=== PATIENT | male | born 1990 ===

== ENCOUNTER 2017-10-14 07:13 | Emergency (ER) | payer BC ==
[2017-10-14 07:31] VITALS: BP 136/84
--- NOTE | 2017-10-23 13:41 | UC ---
Heri Anton Gabriel, scribed for Oanh Shabazz DO on 10/14/17 at 0805 . Laceration HPI - HPI Summary HPI Summary: This patient is a 27 year old M [place] [facility] [place] mother with a chief complaint of an upper lip laceration that occurred at 06:15 this morning. Pt was playing hockey and when another players helmet struck his upper lip splitting it. The patient rates the pain 4/10 in severity. Patient denies fever, chills, CP, ABD pain, FERRARI, dizziness, LOC, vision changes, fatigue, and emotional changes. - History Of Current Complaint Chief Complaint: UCLaceration Stated Complaint: LIP LAC Time Seen by Provider: 10/14/17 07:30 Hx Obtained From: Patient Laceration Location: Face - lip Mechanism Of Injury: Blunt Trauma Onset/Duration: Sudden Onset, Still Present Severity: Mild Pain Intensity: 4 Pain Scale Used: 0-10 Numeric - Allergies/Home Medications Allergies/Adverse Reactions: Allergies Allergy/AdvReac Type Severity Reaction Status Date / Time No Known Allergies Allergy Verified 10/14/17 07:25 PMH/Surg Hx/FS Hx/Imm Hx Previously Healthy: Yes Other History Of: Negative For: Anticoagulant Therapy - Surgical History Surgical History: None Surgery Procedure, Year, and Place: L knee - ACL repair 2011 - Family History Known Family History: Negative: Cardiac Disease, Hypertension, Diabetes, Renal Disease, Respiratory Disease, Seizure Disorder, Blood Disorder - Social History Lives: With Family Alcohol Use: None Substance Use Type: None Smoking Status (MU): Never Smoked Tobacco Review of Systems Constitutional: Negative - fever Skin: Other - lip lac All Other Systems Reviewed And Are Negative: Yes Physical Exam - Summary Physical Exam Summary: Appearance: Well-Appearing, No Pain Distress, Well-Nourished Eyes: conjunctiva clear, no discharge ENT: Hearing grossly normal, no muffled/hoarse voice. TMs normal, negative tonsillar swelling, negative tonsillar exudate, negative trismus. Neck: Normal, Supple Respiratory/Lung Sounds: Lungs clear, Normal breath sounds, No respiratory distress, No accessory muscle use Cardiovascular: RRR, No murmur Musculoskeletal: Normal Neurological: Alert, muscle tone normal Psychiatric:Normal, age appropriate behavior Skin: Normal, Warm, Dry, Normal color, cm laceration on the upper right lip that crosses the david border Triage Information Reviewed: Yes Vital Signs: Initial Vital Signs Temp 98.7 F 10/14/17 07:25 Pulse 62 10/14/17 07:25 Resp 18 10/14/17 07:25 BP 136/84 10/14/17 07:25 Pulse Ox 98 10/14/17 07:25 Vital Signs Reviewed: Yes Re-Evaluation - Re-Evaluation First Eval Re-Evaluation Time: 08:08 Change: Unchanged Comment: Pt states he would like to have a plastic surgeon sew his lip. His mother is attempting to contact one currently, if she cannot be seen I will perform the repair. Second Eval Re-Evaluation Time: 08:15 Change: Unchanged - The patient was able to get an appointment with the plastic surgeon and will be getting the repair done there. Laceration Course/Dx - Course/Dx Course Of Treatment: Hypertension noted likely due to patients current condition. Patient will be discharged and will report directly to Dr. Jensen s office to have his lip repaired. The patient is agreeable with this plan. Medications reviewed. - Differential Dx - Laceration/Wound Provider Diagnoses: facial laceration Discharge - Sign-Out/Discharge Documenting (check all that apply): Discharge - Discharge Plan Condition: Stable Disposition: HOME Patient Education Materials: Facial Laceration (ED) Referrals: No Primary Care Phys,NOPCP [Primary Care Provider] - Additional Instructions: YOU REQUESTED TO HAVE YOUR LACERATION CLOSED BY DR JENSEN. FORTUNATELY, HE WAS ABLE TO GET YOU IN. PLEASE GO THERE FOR CLOSE KRYSTEN. The documentation as recorded by the Heri verma Gabriel accurately reflects the service I personally performed and the decisions made by me, Oanh Shabazz DO.
== END 2017-10-14 08:20 | disposition home or self-care (01) ==
LOC: UCEAST 07:13
DX: S01.511A Laceration without foreign body of lip, initial encounter (principal); W50.0XXA Accidental hit or strike by another person, initial encounter; Y93.22 Activity, ice hockey; Y92.330 Ice skating rink (indoor) (outdoor) as the place of occurrence of the external cause
CPT/HCPCS: 99211; G0463

== ENCOUNTER 2019-06-06 02:18 | Emergency (ER) | payer SELFPAY ==
--- NOTE | 2019-06-06 02:55 | ED ---
Skin Complaint - HPI Summary HPI Summary: Pt is a 29 y/o M presenting to the ED with a chief complaint of a rash initially onset about 2 days ago. He states it started with one spot on his L hand and then it began spreading across both of his palms. He also notes hx athletes foot that he started treating with cream that only made it worse. He reports paresthesias tonight, and he had an episode of chills and diaphoresis a few days ago. 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 He denies pain in his mouth or throat, fever, or pruritus. Sx on feet worsened with walking. - History of Current Complaint Chief Complaint: EDRashSkinAbscess Time Seen by Provider: 06/06/19 02:40 Stated Complaint: RED SPOTS ON HAND/FEET PER PT Hx Obtained From: Patient Onset/Duration: Started Days Ago, Still Present Skin Exposure Onset/Duration: Days Ago Timing: Constant, Lasting Days Onset Severity: Moderate Current Severity: Moderate Pain Intensity: 5 Pain Scale Used: 0-10 Numeric Skin Location: Hand, Foot Character: Redness Aggravating Symptom(s): Nothing Alleviating Symptom(s): Nothing Associated Signs & Symptoms: Diaphoresis, Chills, Rash - Allergy/Home Medications Allergies/Adverse Reactions: Allergies Allergy/AdvReac Type Severity Reaction Status Date / Time No Known Allergies Allergy Verified 06/06/19 02:24 PMH/Surg Hx/FS Hx/Imm Hx Previously Healthy: Yes Endocrine/Hematology History: Denies: Hx Anticoagulant Therapy, Hx Diabetes, Hx Thyroid Disease, Hx Anemia Cardiovascular History: Denies: Hx Hypertension Respiratory History: Denies: Hx Asthma, Hx Chronic Obstructive Pulmonary Disease (COPD) GI History: Denies: Hx Ulcer - Surgical History Surgery Procedure, Year, and Place: L knee - ACL repair 2011 Infectious Disease History: No Infectious Disease History: Denies: Hx Clostridium Difficile, Hx Hepatitis, Hx Human Immunodeficiency Virus (HIV), Hx of Known/Suspected MRSA, Hx Shingles, Hx Tuberculosis, Hx Known/ Suspected VRE, Hx Known/Suspected VRSA, History Other Infectious Disease, Traveled Outside the [place] in Last 30 Days - Family History Known Family History: Negative: Cardiac Disease, Hypertension, Diabetes, Renal Disease, Respiratory Disease, Seizure Disorder, Blood Disorder - Social History Alcohol Use: None Hx Substance Use: No Substance Use Type: Reports: None Hx Tobacco Use: No Smoking Status (MU): Never Smoked Tobacco Review of Systems Positive: Chills, Skin Diaphoresis. Negative: Fever Negative: Sore Throat, Other - mouth pain Positive: Rash. Negative: Other - pruritus Positive: Paresthesia All Other Systems Reviewed And Are Negative: Yes Physical Exam - Summary Physical Exam Summary: Appearance: Well-appearing, Well-nourished, lying in bed comfortably Skin: Warm, dry. Hands: Small macular lesions, a few of which appear to be vasiculating. No cellulitis or abscess. Feet: Intertriginous dermatified infection. Eyes: sclera anicteric, no conjunctival pallor ENT: mucous membranes moist, pharynx appears normal, no oral lesions. Neck: Supple, nontender Respiratory: Clear to auscultation, no signs of respiratory distress Cardiovascular: Normal S1, S2. No murmurs. Normal distal pulses in tibial and radial bilaterally. Abdomen: Soft, nontender, normal active bowel sounds present Musculoskeletal: Normal, Strength/ROM Intact Neurological: A&Ox3, awake and alert, mentation is normal, speech is fluent and appropriate Psychiatric: affect is normal, does not appear anxious or depressed Triage Information Reviewed: Yes Vital Signs On Initial Exam: Initial Vitals Temp Pulse Resp BP Pulse Ox 97.4 F 68 20 144/104 100 06/06/19 02:20 06/06/19 02:20 06/06/19 02:20 06/06/19 02:20 06/06/19 02:20 Vital Signs Reviewed: Yes Procedures - Sedation Patient Received Moderate/Deep Sedation with Procedure: No Diagnostics - Vital Signs Vital Signs Temp Pulse Resp BP Pulse Ox 06/06/19 02:20 97.4 F 68 20 144/104 100 - Laboratory Lab Statement: Any lab studies that have been ordered have been reviewed, and results considered in the medical decision making process. Course/Dx - Course Course Of Treatment: Pt is a 29 y/o M presenting to the ED with a chief complaint of a rash initially onset about 2 days ago. He reports rash across his palms, feet, paresthesias tonight, and he had an episode of chills and diaphoresis a few days ago. 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 He denies pain in his mouth or throat, or pruritus. Sx on feet worsened with walking. Pt's physical shows small macular lesions on his hands, a few of which appear to be vasiculating. No cellulitis or abscess. On his feet, there is intertriginous dermatified infection. Pt will be d/c'ed with dx of hand, foot, mouth disease. He is stable and agreeable with this plan. - Diagnoses Provider Diagnoses: Hand, foot and mouth disease Discharge ED - Sign-Out/Discharge Documenting (check all that apply): Patient Departure - Discharge Plan Condition: Good Disposition: HOME Patient Education Materials: Hand, Foot, and Mouth Disease (ED) Referrals: Reg Garay MD [Medical Doctor] - Additional Instructions: If I am correct, this should be a self limited problem that resolves on its own over the next 1-2 weeks. You may go on to develop a similar rash on the feet and oral lesions. If so this would settle the diagnosis, not be a cause of alarm. If this doesn't seem to be healing I would recommend making an appointment with a head of art such as Dr. Garay. - Billing Disposition and Condition Condition: GOOD Disposition: Home - Attestation Statements Document Initiated by Audie: Yes Documenting Scribe: Steff Krueger Provider For Whom Audie is Documenting (Include Credential): New Bass MD. Scribe Attestation: I, Steff Krueger, skylered for New Bass MD. on 06/09/19 at 0330. Scribe Documentation Reviewed: Yes Provider Attestation: The documentation as recorded by the skylere, Steff Krueger accurately reflects the service I personally performed and the decisions made by me, New Bass MD. Status of Scribe Document: Viewed
[2019-06-06 03:08] VITALS: BP 141/79
== END 2019-06-06 02:49 | disposition home or self-care (01) ==
LOC: ED 02:18
DX: B08.4 Enteroviral vesicular stomatitis with exanthem (principal)
CPT/HCPCS: 99282